=== PATIENT | female | born 1970 | race African-American/Black ===

== ENCOUNTER → 2017-08-11 | Outpatient (CLI) | payer OTHER ==
[~2017-08-11] MED LIST: CRANBERRY400 MG PO; MULTIVITAMINS1 EAC7 PO; NABUMETONE 500500 M1 PO; NEURONTIN 300300 M1 PO; NEURONTIN600 MG PO; TRAMADOL 50 MG50 MG PO; TRAMADOL HCL50 MG PO
== END ==
LOC: RAD 13:46
DX: J10.1 Influenza due to other identified influenza virus with other respiratory manifestations (principal)